=== PATIENT | female | born 1955 | race Caucasian/White ===

== ENCOUNTER 2018-01-04 18:22 | Emergency (ER) | payer MEDICAID ==
[~2018-01-04] VITALS: Ht 149.9 cm; Wt 78.2 kg
[~2018-01-04 18:22] MED LIST: FLO0.4C PO
[2018-01-04] MEDS ORDERED: normal saline 1000ML IV soln IVB ONE (21:05)
[2018-01-04] MEDS ORDERED: diphenhydrAMINE 50 mg/ml inj IV ONE (21:05)
[2018-01-04] MEDS ORDERED: metoclopramide 5 mg/ml inj IV ONE (21:05)
[2018-01-04 21:56] LABS: BASOPHILS % (AUTO) 0 % (0-1); EOSINOPHILS % (AUTO) 0 % (0-6); HEMATOCRIT 43.4 % (35.0-45.0); HEMOGLOBIN 14.6 g/dl (12.0-16.0); LYMPHOCYTES # (AUTO) 0.7 X10'3 (1.1-4.8); LYMPHOCYTES % (AUTO) 4.1 % (21-51); MEAN CORPUSCULAR HEMOGLOBIN 30.8 PG (27.0-31.0); MEAN CORPUSCULAR HGB CONC 33.6 % (33.0-36.5); MEAN CORPUSCULAR VOLUME 91.7 FL (78-98); MEAN PLATELET VOLUME 8.9 FL (7.4-10.4); MONOCYTES # (AUTO) 0.8 X10'3 (0-0.9); MONOCYTES % (AUTO) 5.3 % (2-12); NEUTROPHILS # (AUTO) 14.5 X10'3 (1.8-7.7); NEUTROPHILS % (AUTO) 90.6 % (42-75); PLATELET COUNT 163 X10'3 (140-440); RED BLOOD COUNT 4.73 X10'6 (4.20-5.60); RED CELL DISTRIBUTION WIDTH 13.6 % (11.5-14.5)
[2018-01-04] MEDS ORDERED: diphenhydrAMINE 50 mg/ml inj IM ONE (22:00)
[2018-01-04] MEDS ORDERED: metoclopramide 5 mg/ml inj IM ONE (22:00)
[2018-01-04 22:11] VITALS: BP 130/73
[2018-01-04 22:11] LABS: ALANINE AMINOTRANSFERASE 32 U/L (12-78); ALBUMIN 3.1 G/DL (3.4-5.0); ALBUMIN/GLOBULIN RATIO 0.7 (1.1-1.5); ALKALINE PHOSPHATASE 199 IU/L (46-116); ANION GAP 9 (8-16); ASPARTATE AMINO TRANSFERASE 27 U/L (10-37); BILIRUBIN,TOTAL 1.5 MG/DL (0.1-1.0); BLOOD UREA NITROGEN 15 MG/DL (7-18); BUN/CREATININE RATIO 10.6 (6.6-38.0); CALCIUM 9.6 MG/DL (8.5-10.1); CHLORIDE 98 MMOL/L (99-107); CREATININE 1.41 MG/DL (0.40-0.90); GLUCOSE 133 MG/DL (70-104); MAGNESIUM 1.8 MG/DL (1.5-2.4); POTASSIUM 3.6 MMOL/L (3.5-5.1); SODIUM 132 MMOL/L (135-145); TOTAL CARBON DIOXIDE 25.1 MMOL/L (24-32); TOTAL PROTEIN 7.8 G/DL (6.4-8.2); eGFR 38 ML/MIN
[2018-01-04 22:22] LABS: PLATELET ESTIMATE NORMAL; TOTAL CELLS COUNTED 100
[2018-01-04] MEDS ORDERED: ONDA4TAB6 PO (22:29)
== END 2018-01-04 22:40 | disposition home or self-care (01) ==
LOC: ER 18:22
DX: E87.1 Hypo-osmolality and hyponatremia (principal); R51 Headache; R11.2 Nausea with vomiting, unspecified; R10.84 Generalized abdominal pain; Z87.442 Personal history of urinary calculi; Z79.899 Other long term (current) drug therapy
CPT/HCPCS: 36415; 70450; 80053; 83735; 85025; 96372; 99285; J1200; J2765; J7030

== ENCOUNTER 2018-01-07 11:16 | Inpatient (IN) | payer MEDICAID ==
[~2018-01-07] VITALS: Ht 149.9 cm; Wt 78.2 kg
[~2018-01-07 11:16] MED LIST changes: +ONDA4TAB6 PO
[2018-01-07] MEDS ORDERED: normal saline 1000ML IV soln IVB ONE ×2 (12:30)
[2018-01-07] MEDS ORDERED: ondansetron/PF 4mg/2ml inj IV ONE (12:30)
[2018-01-07 15:12] LABS: BASOPHILS % (AUTO) 0.1 % (0-1); EOSINOPHILS # (AUTO) 0.1 X10'3 (0-0.9); EOSINOPHILS % (AUTO) 0.7 % (0-6); HEMATOCRIT 41.9 % (35.0-45.0); HEMOGLOBIN 14.2 g/dl (12.0-16.0); LYMPHOCYTES # (AUTO) 0.8 X10'3 (1.1-4.8); LYMPHOCYTES % (AUTO) 4.8 % (21-51); MEAN CORPUSCULAR HEMOGLOBIN 30.6 PG (27.0-31.0); MEAN CORPUSCULAR HGB CONC 33.9 % (33.0-36.5); MEAN CORPUSCULAR VOLUME 90.4 FL (78-98); MONOCYTES # (AUTO) 1.2 X10'3 (0-0.9); MONOCYTES % (AUTO) 7.9 % (2-12); NEUTROPHILS # (AUTO) 13.6 X10'3 (1.8-7.7); NEUTROPHILS % (AUTO) 86.5 % (42-75); PLATELET COUNT 185 X10'3 (140-440); RED BLOOD COUNT 4.63 X10'6 (4.20-5.60); RED CELL DISTRIBUTION WIDTH 12.9 % (11.5-14.5); WHITE BLOOD COUNT 15.7 X10'3 (4.5-11.0)
[2018-01-07 15:17] LABS: INR 0.9 INR; PROTHROMBIN TIME 9.5 SECONDS (9.0-12.0)
[2018-01-07 15:24] LABS: ALANINE AMINOTRANSFERASE 27 U/L (12-78); ALBUMIN 2.4 G/DL (3.4-5.0); ALBUMIN/GLOBULIN RATIO 0.5 (1.1-1.5); ALKALINE PHOSPHATASE 180 IU/L (46-116); ANION GAP 9 (8-16); ASPARTATE AMINO TRANSFERASE 16 U/L (10-37); BILIRUBIN,TOTAL 0.3 MG/DL (0.1-1.0); BLOOD UREA NITROGEN 46 MG/DL (7-18); BUN/CREATININE RATIO 20.3 (6.6-38.0); CALCIUM 9.7 MG/DL (8.5-10.1); CHLORIDE 99 MMOL/L (99-107); CREATININE 2.27 MG/DL (0.40-0.90); GLUCOSE 158 MG/DL (70-104); LIPASE 132 U/L (73-393); POTASSIUM 3.5 MMOL/L (3.5-5.1); SODIUM 132 MMOL/L (135-145); TOTAL CARBON DIOXIDE 23.8 MMOL/L (24-32); TOTAL PROTEIN 7.6 G/DL (6.4-8.2); eGFR 22 ML/MIN
[2018-01-07 15:33] LABS: TOTAL CELLS COUNTED 100
[2018-01-07 15:40] LABS: PLATELET ESTIMATE NORMAL
[2018-01-07 15:41] LABS: GIANT PLATELET FEW; POLYCHROMASIA 1+; ROULEAUX 1+
[2018-01-07 15:58] LABS: CLARITY,URINE TURBID (Clear); COLOR,URINE YELLOW (Yellow); GLUCOSE, URINE NEGATIVE (Neg); KETONES,URINE NEGATIVE (Neg); LEUKOCYTE ESTERASE ,URINE LARGE (Neg); NITRITES, URINE NEGATIVE (Neg); OCCULT BLOOD,URINE LARGE (Neg); PH,URINE 5.5 (4.8-8.0); PROTEIN,URINE 30 mg/dl (Neg); UROBILINOGEN,URINE 0.2 E.U/dL (0.2-1.0)
[2018-01-07 15:59] LABS: UA COLLECTION TYPE STRAIGHT CATH
[2018-01-07 16:03] LABS: BACTERIA,URINE 3+ /HPF (Neg); RBC,URINE 20-50 /HPF (0-2); SQUAMOUS EPITHELIAL CELL,UR NONE SEEN /LPF (FEW); TRANSITIONAL EPI CELLS,URINE FEW /HPF; WBC,URINE TNTC /HPF (0-4)
[2018-01-07 16:04] LABS: WBC CLUMPS,URINE MANY /HPF (NEGATIVE)
[2018-01-07] MEDS ORDERED: CefTRIAXone/D5W-Rocephin 1gm 50 ML IV ONE (16:10)
[2018-01-07 16:11] LABS: URINE AMPHETAMINE SCREEN POSITIVE (Neg); URINE BARBITUATE SCREEN NEGATIVE (Neg); URINE BENZODIAZEPINES SCREEN NEGATIVE (Neg); URINE CANNABINOID SCREEN NEGATIVE (Neg); URINE COCAINE SCREEN NEGATIVE (Neg); URINE METHADONE SCREEN NEGATIVE (Neg); URINE OPIATE SCREEN NEGATIVE (Neg); URINE PHENCYCLIDINE SCREEN NEGATIVE (Neg)
[2018-01-07] MEDS ORDERED: ondansetron/PF 4mg/2ml inj IV PRN (16:40)
[2018-01-07] MEDS ORDERED: magnesium hydroxide 30ml (MOM) UD suspension PO PRN (16:40)
[2018-01-07] MEDS ORDERED: LORazepam 2 mg/ml vial IV PRN (16:40)
[2018-01-07] MEDS ORDERED: mag hydrox/Alum hydrox/simeth 30ml oral suspension PO PRN (16:40)
[2018-01-07] MEDS: normal saline 1000ml 1,000 ML IV SCH (17:20)
[2018-01-07 18:35] VITALS: BP 141/56
[2018-01-07] MEDS: heparin, porcine 5000 units/ml vial SQ SCH (21:59)
[2018-01-07 23:30] VITALS: BP 112/59
[2018-01-08] MEDS: acetaminophen 325mg tablet PO PRN ×3 (01:41→18:37)
[2018-01-08] MEDS: normal saline 1000ml 1,000 ML IV SCH ×3 (01:41→21:10)
[2018-01-08 05:53] LABS: BASOPHILS % (AUTO) 0.2 % (0-1); EOSINOPHILS % (AUTO) 0.4 % (0-6); HEMATOCRIT 36.6 % (35.0-45.0); HEMOGLOBIN 12.7 g/dl (12.0-16.0); MEAN CORPUSCULAR HEMOGLOBIN 31.1 PG (27.0-31.0); MEAN CORPUSCULAR HGB CONC 34.6 % (33.0-36.5); MEAN CORPUSCULAR VOLUME 89.7 FL (78-98); MEAN PLATELET VOLUME 9.9 FL (7.4-10.4); MONOCYTES % (AUTO) 8.4 % (2-12); NEUTROPHILS # (AUTO) 10.2 X10'3 (1.8-7.7); PLATELET COUNT 160 X10'3 (140-440); RED BLOOD COUNT 4.08 X10'6 (4.20-5.60); RED CELL DISTRIBUTION WIDTH 13.2 % (11.5-14.5); WHITE BLOOD COUNT 12.3 X10'3 (4.5-11.0)
[2018-01-08 06:09] LABS: ALBUMIN 2.1 G/DL (3.4-5.0); ANION GAP 11 (8-16); BLOOD UREA NITROGEN 38 MG/DL (7-18); CALCIUM 9.1 MG/DL (8.5-10.1); CHLORIDE 101 MMOL/L (99-107); GLUCOSE 123 MG/DL (70-104); POTASSIUM 3.3 MMOL/L (3.5-5.1); SODIUM 135 MMOL/L (135-145); TOTAL CARBON DIOXIDE 23.5 MMOL/L (24-32); eGFR 25 ML/MIN
[2018-01-08 07:00] VITALS: BP 115/61
[2018-01-08] MEDS: CefTRIAXone 2gm/D5W 50ml 50 ML IV SCH (07:15)
[2018-01-08] MEDS: heparin, porcine 5000 units/ml vial SQ SCH ×2 (07:15→20:42)
[2018-01-08] MEDS ORDERED: NO HOME MEDS (09:00)
[2018-01-08 11:00] VITALS: BP 92/47
[2018-01-08] MEDS ORDERED: potassium Cl 20 mEq SR tablet PO PRN (12:10)
[2018-01-08] MEDS ORDERED: potassium Cl 40MEQ/NS 500ml 500 ML IV PRN ×2 (12:10)
[2018-01-08] MEDS ORDERED: magnesium 4gm in 100ml NS 100 ML IV PRN (12:10)
[2018-01-08] MEDS ORDERED: magnesium 2GM in 50ml NS 50 ML IV PRN (12:10)
[2018-01-08] MEDS ORDERED: magnesium Cl slow-release 64mg tablet PO PRN (12:10)
[2018-01-08] MEDS: potassium Cl 20 mEq SR tablet PO PRN ×2 (12:37→16:42)
[2018-01-08] MEDS ORDERED: heparin 1,000unit/ml 10ml vial 10 ML ONE (14:14)
[2018-01-08 18:30] VITALS: BP 113/64
[2018-01-08] MEDS: lactobacillus rhamnosus 10,000 MMU CELLS/CAPSULE PO SCH (20:42)
[2018-01-09] VITALS: BP 112/62
[2018-01-09 05:33] LABS: BASOPHILS % (AUTO) 0.4 % (0-1); EOSINOPHILS # (AUTO) 0.2 X10'3 (0-0.9); EOSINOPHILS % (AUTO) 2.8 % (0-6); HEMATOCRIT 34.5 % (35.0-45.0); LYMPHOCYTES # (AUTO) 0.9 X10'3 (1.1-4.8); LYMPHOCYTES % (AUTO) 10.1 % (21-51); MEAN CORPUSCULAR HEMOGLOBIN 31.3 PG (27.0-31.0); MEAN CORPUSCULAR HGB CONC 34.8 % (33.0-36.5); MEAN CORPUSCULAR VOLUME 89.9 FL (78-98); MONOCYTES # (AUTO) 0.8 X10'3 (0-0.9); NEUTROPHILS # (AUTO) 6.7 X10'3 (1.8-7.7); NEUTROPHILS % (AUTO) 77.7 % (42-75); PLATELET COUNT 178 X10'3 (140-440); RED BLOOD COUNT 3.84 X10'6 (4.20-5.60); RED CELL DISTRIBUTION WIDTH 13.2 % (11.5-14.5); WHITE BLOOD COUNT 8.6 X10'3 (4.5-11.0)
[2018-01-09 05:46] LABS: ALBUMIN 1.9 G/DL (3.4-5.0); ANION GAP 10 (8-16); BLOOD UREA NITROGEN 26 MG/DL (7-18); CHLORIDE 107 MMOL/L (99-107); CREATININE 1.53 MG/DL (0.40-0.90); GLUCOSE 118 MG/DL (70-104); MAGNESIUM 1.9 MG/DL (1.5-2.4); POTASSIUM 3.4 MMOL/L (3.5-5.1); SODIUM 140 MMOL/L (135-145); TOTAL CARBON DIOXIDE 22.9 MMOL/L (24-32); eGFR 35 ML/MIN
[2018-01-09] MEDS: normal saline 1000ml 1,000 ML IV SCH (06:45)
[2018-01-09 06:55] VITALS: BP 103/67
[2018-01-09] MEDS: CefTRIAXone 2gm/D5W 50ml 50 ML IV SCH (07:45)
[2018-01-09] MEDS: heparin, porcine 5000 units/ml vial SQ SCH (07:45)
[2018-01-09] MEDS: lactobacillus rhamnosus 10,000 MMU CELLS/CAPSULE PO SCH (07:45)
[2018-01-09] MEDS: potassium Cl 20 mEq SR tablet PO PRN (07:51)
[2018-01-09 11:33] VITALS: BP 102/48
[2018-01-09] MEDS ORDERED: SERT50TA PO (12:33)
[2018-01-09] MEDS ORDERED: CIPR-230 PO (12:33)
== END 2018-01-09 14:48 | disposition home or self-care (01) | DRG 720 ==
LOC: ER 11:16 → ED HOLD 16:38 → SUR 3N 18:36
PROVIDERS: ADMIT Family Medicine; ATTEND Family Medicine
DX: A41.9 Sepsis, unspecified organism (principal); E87.2 Acidosis; N17.9 Acute kidney failure, unspecified; E87.1 Hypo-osmolality and hyponatremia; E86.0 Dehydration; F12.90 Cannabis use, unspecified, uncomplicated; F15.10 Other stimulant abuse, uncomplicated; N18.9 Chronic kidney disease, unspecified; E87.6 Hypokalemia; N39.0 Urinary tract infection, site not specified; R29.6 Repeated falls; Z87.442 Personal history of urinary calculi; Z87.891 Personal history of nicotine dependence; Z90.49 Acquired absence of other specified parts of digestive tract; Z93.2 Ileostomy status
CPT/HCPCS: 36415; 71045; 80048; 80053; 80305; 81001; 83605; 83690; 83735; 84484; 85025; 85610; 87040; 87070; 87077; 87088; 87186; 93005; 96365; 96375; 99285; A4353; A4421; J0696; J1644; J2405; J7030

== ENCOUNTER 2023-01-26 15:41 | Emergency (ER) | payer MEDICAID ==
[~2023-01-26] VITALS: Ht 152.4 cm; Wt 70.0 kg
[2023-01-26 15:47] VITALS: BP 130/98
[2023-01-26 16:49] LABS: BASOPHILS % (AUTO) 0.8 % (0-1); EOSINOPHILS # (AUTO) 0.2 X10'3 (0-0.9); EOSINOPHILS % (AUTO) 4.2 % (0-6); HEMATOCRIT 40.8 % (35.0-45.0); HEMOGLOBIN 13.1 g/dl (12.0-16.0); LYMPHOCYTES # (AUTO) 0.7 X10'3 (1.1-4.8); LYMPHOCYTES % (AUTO) 13.6 % (21-51); MEAN CORPUSCULAR HEMOGLOBIN 28.8 PG (27.0-31.0); MEAN CORPUSCULAR HGB CONC 32.2 g/dL (33.0-36.5); MEAN CORPUSCULAR VOLUME 89.5 FL (78-98); MEAN PLATELET VOLUME 8.7 FL (7.4-10.4); MONOCYTES # (AUTO) 0.4 X10'3 (0-0.9); MONOCYTES % (AUTO) 6.8 % (2-12); NEUTROPHILS # (AUTO) 4.1 X10'3 (1.8-7.7); NEUTROPHILS % (AUTO) 74.6 % (42-75); PLATELET COUNT 223 X10'3 (140-440); RED BLOOD COUNT 4.56 X10'6 (4.20-5.60); WHITE BLOOD COUNT 5.5 X10'3 (4.5-11.0)
[2023-01-26 17:03] LABS: ALANINE AMINOTRANSFERASE 18 U/L (12-78); ALBUMIN 3.1 G/DL (3.4-5.0); ALBUMIN/GLOBULIN RATIO 0.7 (1.1-1.5); ALKALINE PHOSPHATASE 156 IU/L (46-116); ANION GAP 12 (8-16); ASPARTATE AMINO TRANSFERASE 15 U/L (10-37); BILIRUBIN,TOTAL 0.2 MG/DL (0.1-1.0); BLOOD UREA NITROGEN 15 MG/DL (7-18); CALCIUM 9.4 MG/DL (8.5-10.1); CHLORIDE 106 MMOL/L (99-107); CREATININE 1.66 MG/DL (0.40-0.90); GLUCOSE 123 MG/DL (70-104); LIPASE 164 U/L (73-393); POTASSIUM 4.6 MMOL/L (3.5-5.1); SODIUM 141 MMOL/L (135-145); TOTAL CARBON DIOXIDE 23.3 MMOL/L (24-32); TOTAL PROTEIN 7.4 G/DL (6.4-8.2); eGFR 31 ML/MIN
[2023-01-27] MEDS ORDERED: CEPH500C81 PO (15:35)
== END 2023-01-26 20:41 | disposition left against medical advice (07) ==
LOC: ER 15:41
DX: R10.9 Unspecified abdominal pain (principal); Z53.21 Procedure and treatment not carried out due to patient leaving prior to being seen by health care provider
CPT/HCPCS: 36415; 80053; 83690; 85025; 99281

== ENCOUNTER 2023-01-27 11:55 | Emergency (ER) | payer MEDICAID ==
[~2023-01-27] VITALS: Ht 152.4 cm; Wt 70.5 kg
[2023-01-27 12:51] LABS: BASOPHILS # (AUTO) 0.1 X10'3 (0-0.2); BASOPHILS % (AUTO) 1.1 % (0-1); EOSINOPHILS # (AUTO) 0.2 X10'3 (0-0.9); EOSINOPHILS % (AUTO) 4.5 % (0-6); HEMATOCRIT 41.9 % (35.0-45.0); HEMOGLOBIN 13.4 g/dl (12.0-16.0); LYMPHOCYTES # (AUTO) 0.8 X10'3 (1.1-4.8); LYMPHOCYTES % (AUTO) 14.6 % (21-51); MEAN CORPUSCULAR HEMOGLOBIN 28.5 PG (27.0-31.0); MEAN PLATELET VOLUME 8.3 FL (7.4-10.4); MONOCYTES # (AUTO) 0.3 X10'3 (0-0.9); MONOCYTES % (AUTO) 5.7 % (2-12); NEUTROPHILS # (AUTO) 3.9 X10'3 (1.8-7.7); NEUTROPHILS % (AUTO) 74.1 % (42-75); PLATELET COUNT 256 X10'3 (140-440); RED BLOOD COUNT 4.71 X10'6 (4.20-5.60); RED CELL DISTRIBUTION WIDTH 14.9 % (11.5-14.5); WHITE BLOOD COUNT 5.2 X10'3 (4.5-11.0)
[2023-01-27 13:10] LABS: ALANINE AMINOTRANSFERASE 20 U/L (12-78); ALBUMIN 3.2 G/DL (3.4-5.0); ALBUMIN/GLOBULIN RATIO 0.7 (1.1-1.5); ALKALINE PHOSPHATASE 161 IU/L (46-116); ANION GAP 12 (8-16); ASPARTATE AMINO TRANSFERASE 17 U/L (10-37); BILIRUBIN,TOTAL 0.3 MG/DL (0.1-1.0); BLOOD UREA NITROGEN 18 MG/DL (7-18); CALCIUM 9.9 MG/DL (8.5-10.1); CHLORIDE 106 MMOL/L (99-107); CREATININE 1.99 MG/DL (0.40-0.90); GLUCOSE 139 MG/DL (70-104); POTASSIUM 4.4 MMOL/L (3.5-5.1); SODIUM 142 MMOL/L (135-145); TOTAL CARBON DIOXIDE 23.7 MMOL/L (24-32); TOTAL PROTEIN 7.6 G/DL (6.4-8.2); eGFR 25 ML/MIN
[2023-01-27 14:56] LABS: CLARITY,URINE CLOUDY (Clear); COLOR,URINE YELLOW (Yellow); GLUCOSE, URINE NEGATIVE (Neg); KETONES,URINE NEGATIVE (Neg); LEUKOCYTE ESTERASE ,URINE MODERATE (Neg); NITRITES, URINE POSITIVE (Neg); OCCULT BLOOD,URINE LARGE (Neg); PROTEIN,URINE 100 mg/dl (Neg); UROBILINOGEN,URINE 0.2 E.U/dL (0.2-1.0)
[2023-01-27 15:07] LABS: UA COLLECTION TYPE VOIDED
[2023-01-27 15:08] LABS: BACTERIA,URINE 2+ /HPF (Neg); MUCUS STRANDS NONE SEEN /LPF (Neg); RBC,URINE 50-100 /HPF (0-2); SQUAMOUS EPITHELIAL CELL,UR FEW /LPF (FEW); WBC,URINE TNTC /HPF (0-4)
[2023-01-27] MEDS ORDERED: CefTRIAXone 1000mg IM Kit (w/lidocaine diluent) IM ONE (15:30)
[2023-01-27] MEDS ORDERED: CEPH500C81 PO (15:35)
[2023-01-27 16:01] VITALS: BP 159/90
== END 2023-01-27 16:02 | disposition home or self-care (01) ==
LOC: ER 11:56
DX: N39.0 Urinary tract infection, site not specified (principal); F12.10 Cannabis abuse, uncomplicated; Z87.442 Personal history of urinary calculi; Z88.5 Allergy status to narcotic agent
CPT/HCPCS: 36415; 80053; 81001; 85025; 87088; 96372; 99283; J0696; 87077; 87186

== ENCOUNTER 2025-01-30 20:23 | Emergency (ER) | payer MEDICAID ==
[~2025-01-30] VITALS: Ht 149.9 cm; Wt 61.4 kg
[2025-01-30 20:32] VITALS: TEMP 98.3
[2025-01-30 21:05] LABS: BASOPHILS # (AUTO) 0.1 X10'3 (0-0.2); BASOPHILS % (AUTO) 0.9 % (0-1); EOSINOPHILS # (AUTO) 0.3 X10'3 (0-0.9); EOSINOPHILS % (AUTO) 5.5 % (0-6); HEMATOCRIT 34.8 % (35.0-45.0); HEMOGLOBIN 11.5 g/dl (12.0-16.0); LYMPHOCYTES % (AUTO) 17.4 % (21-51); MEAN CORPUSCULAR HEMOGLOBIN 29.3 PG (27.0-31.0); MEAN CORPUSCULAR HGB CONC 33.2 g/dL (33.0-36.5); MEAN CORPUSCULAR VOLUME 88.4 FL (78-98); MEAN PLATELET VOLUME 8.5 FL (7.4-10.4); MONOCYTES # (AUTO) 0.3 X10'3 (0-0.9); MONOCYTES % (AUTO) 5.2 % (2-12); NEUTROPHILS # (AUTO) 4.2 X10'3 (1.8-7.7); PLATELET COUNT 214 X10'3 (140-440); RED BLOOD COUNT 3.93 X10'6 (4.20-5.60); RED CELL DISTRIBUTION WIDTH 16.1 % (11.5-14.5)
[2025-01-30 21:16] LABS: ALANINE AMINOTRANSFERASE 14 U/L (12-78); ALBUMIN/GLOBULIN RATIO 0.9 (1.1-1.5); ALKALINE PHOSPHATASE 159 IU/L (46-116); ANION GAP 10 (8-16); ASPARTATE AMINO TRANSFERASE 15 U/L (10-37); BILIRUBIN,TOTAL 0.1 MG/DL (0.1-1.0); BLOOD UREA NITROGEN 28 MG/DL (7-18); BUN/CREATININE RATIO 14.7 (10.0-20.0); CALCIUM 9.1 MG/DL (8.5-10.1); CHLORIDE 115 MMOL/L (99-107); CREATININE 1.91 MG/DL (0.40-0.90); GLUCOSE 116 MG/DL (70-104); LIPASE 90 U/L (16-77); POTASSIUM 4.3 MMOL/L (3.5-5.1); SODIUM 145 MMOL/L (135-145); TOTAL CARBON DIOXIDE 20.4 MMOL/L (24-32); TOTAL PROTEIN 6.5 G/DL (6.4-8.2); eCRCL 19 ML/MIN; eGFR 26 ML/MIN
--- NOTE | 2025-01-30 22:17 | Physician Documentation ---
History of Present Illness Chief Complaint: Abdominal Pain Stated Complaint: ABD PAIN Time Seen by MD: 21:56 Primary Medical Doctor: Dr David at [facility] 69-year-old female, history of multiple abdominal surgeries, multiple hernias, ostomy, who presents with intermittent abdominal pain. She tells me that recently, she has been having pain related to her hernias. She tells me that sometimes they pop out and a hard to push back in, although they do eventually go back in. She says that her friend told her you might be septic because they are getting stuck sometimes, and so she came in to get checked out. He tells me her primary concern is that she could be septic. She also tells me that over the past 2 weeks she has been having increased weakness and intermittent lightheadedness. She tells me that she has had to have someone help her do activities. She denies any definite fevers, congestion, cough, shortness of breath, vomiting, change in her ostomy, or dysuria. Has been eating and drinking okay although she thinks she may be dehydrated. Medication Reconciliation Allergies: Coded Allergies: meperidine (Verified Allergy, Intermediate, N/V, 01/30/25) Scheduled Sulfamethoxazole/Trimethoprim (Bactrim Ds Tablet), 1 TAB PO Q12H Past Medical History Past Medical History: Kidney Stones, UTI Past Surgical History: abdominal surgery, colectomy, Other Past Surgical History: Hernia bags Alcohol Use: None Drug Use: marijuana Lives In: Home Review of Systems Constitutional: Denies: fever Gastrointestinal: Reports: abdomen distended, abdominal pain; Denies: vomiting Physical Exam Vital Signs: Temperature: 98.3, Heart Rate: 72, Respiratory Rate: 18, BP: 145/71, Pulse Oximetry: 98, Weight: 61.360 Physical Exam General: This is a pleasant and overall well-appearing older woman, not in distress HEENT: Atraumatic, oropharynx appears dry Heart: Regular rate and rhythm, normal-appearing peripheral perfusion Lungs: Clear breath sounds bilateral, normal work of breathing, normal oxygen saturation on room air Abdomen: Soft, nondistended. The patient has an ostomy bag in place with normal output. She has multiple palpable hernias which are easily reducible in the abdominal wall. No overlying skin changes. Extremities: Warm and well-perfused Neuro: Alert and oriented, no focal weakness Psychiatric: Calm and cooperative with exam Skin: She does have mild tenting of the skin Progress Results/Orders Results/Orders Orders - BABITA FLORES MD Urinalysis, Cult If Indicated (01/30/25 20:34) Hcg, Ur Ql (01/30/25 20:34) Normal Saline 1000ml (Sodium Chloride 10 (01/30/25 22:15) Completed Orders - BABITA FLORES MD Cbc/Diff (01/30/25 20:34) BMP (01/30/25 20:34) Lipase (01/30/25 20:34) CMP (01/30/25 20:34) Vital Signs 01/30/25 01/30/25 20:32 21:03 Temp 98.3 Pulse 72 Resp 18 B/P (MAP) 145/71 Pulse Ox 98 Laboratory Tests Test 01/30/25 20:51 White Blood Count 6.0 Red Blood Count 3.93 L Hemoglobin 11.5 L Hematocrit 34.8 L Mean Corpuscular Volume 88.4 Mean Corpuscular Hemoglobin 29.3 Mean Corpuscular Hemoglobin Concent 33.2 Red Cell Distribution Width 16.1 H Platelet Count 214 Mean Platelet Volume 8.5 Neutrophils (%) (Auto) 71.0 Lymphocytes (%) (Auto) 17.4 L Monocytes (%) (Auto) 5.2 Eosinophils (%) (Auto) 5.5 Basophils (%) (Auto) 0.9 Neutrophils # (Auto) 4.2 Lymphocytes # (Auto) 1.0 L Monocytes # (Auto) 0.3 Eosinophils # (Auto) 0.3 Basophils # (Auto) 0.1 CBC Comment Sodium Level 145 Potassium Level 4.3 Chloride Level 115 H Carbon Dioxide Level 20.4 L Anion Gap 10 Blood Urea Nitrogen 28 H Creatinine 1.91 H Estimated GFR/1.73 m2 26 BUN/Creatinine Ratio 14.7 Glucose Level 116 H Calcium Level 9.1 Total Bilirubin 0.1 Aspartate Amino Transf (AST/SGOT) 15 Alanine Aminotransferase (ALT/SGPT) 14 Alkaline Phosphatase 159 H Total Protein 6.5 Albumin 3.0 L Globulin 3.5 Albumin/Globulin Ratio 0.9 L Lipase 90 H Chemistry Comments Medical Decision Making Additional Comments Differential includes incarcerated hernia, strangulated hernia, general hernia related pain, bowel obstruction, dehydration, electrolyte derangement, UTI Assessment The patient presents with abdominal pain related to her multiple abdominal hernias, as well as generalized weakness and dizziness. On exam, she has easily reducible hernias, without evidence of incarceration or strangulation. She is otherwise well-appearing and has no abdominal tenderness. Laboratory testing is unremarkable, no significant dehydration or other significant finding. Urinalysis then returns positive for an infection. She was given IV ceftriaxone. No evidence of sepsis. I did offer admission for further treatment given her reported weakness. Howeve r, she declined. She was able to ambulate easily, is able to do her ADLs. She would like to go home. She will be discharged with antibiotics. Urine culture pending. Return precautions given. Departure Time of Disposition: 02:11 Disposition: 01 HOME / SELF CARE / HOMELESS Impression: Primary Impression: UTI Condition: Improved Discharge Instructions: Urinary Tract Infection, Adult Referrals: NO PRIMARY CARE PROVIDER (PCP) Prescriptions Sulfamethoxazole/Trimethoprim (Bactrim Ds Tablet) 800 Mg-160 Mg Tablet 1 TAB PO Q12H for 5 Days, #10 TAB Prov: BABITA FLORES MD 01/31/25 Education Educated: Patient Educated regarding: diagnosis, treatment Signature Scribe Signature: casa Attestation: BABITA Rincon MD Jan 30, 2025 22:17
[2025-01-30] MEDS: normal saline 1000ml 1,000 ML IV ONE (22:28)
[2025-01-31 00:18] LABS: URINE HCG NEGATIVE (NEG)
[2025-01-31 00:20] LABS: BILIRUBIN,URINE NEGATIVE (Neg); CLARITY,URINE CLOUDY (Clear); COLOR,URINE YELLOW (Yellow); GLUCOSE, URINE NEGATIVE (Neg); KETONES,URINE NEGATIVE (Neg); LEUKOCYTE ESTERASE ,URINE LARGE (Neg); NITRITES, URINE POSITIVE (Neg); OCCULT BLOOD,URINE MODERATE (Neg); PROTEIN,URINE TRACE mg/dl (Neg); UROBILINOGEN,URINE 0.2 E.U/dL (0.2-1.0)
[2025-01-31 00:21] LABS: UA COLLECTION TYPE NON-SPECIFIED
[2025-01-31 00:28] LABS: BACTERIA,URINE 1+ /HPF (Neg); SQUAMOUS EPITHELIAL CELL,UR FEW /LPF (FEW); WBC,URINE TNTC /HPF (0-4)
[2025-01-31 01:28] VITALS: BP 126/88; PULSE 77; RESP 13; O2SAT 96
[2025-01-31] MEDS: CefTRIAXone/D5W-Rocephin 1gm 50 ML IV ONE (01:29)
[2025-01-31] MEDS ORDERED: SULF1TAB49 PO (02:13)
== END 2025-01-31 03:04 | disposition home or self-care (01) ==
LOC: ER 20:24
DX: N39.0 Urinary tract infection, site not specified (principal); F12.90 Cannabis use, unspecified, uncomplicated; Z90.49 Acquired absence of other specified parts of digestive tract; Z88.5 Allergy status to narcotic agent; Z87.442 Personal history of urinary calculi
CPT/HCPCS: 36415; 80053; 81001; 81025; 83690; 85025; 87077; 87088; 87186; 96361; 96365; 99284; J0696; J7030